=== PATIENT | female | born 1950 | race American Indian/Alaskan Native ===

== ENCOUNTER → 2025-03-24 13:12 | Outpatient (BNVA) | payer OTHER, SELFPAY | PROVIDERS: PCP Internal Medicine ==

== ENCOUNTER 2025-05-11 14:43 | Outpatient (AMB) | payer OTHER, SELFPAY ==
--- NOTE | 2025-05-11 14:50 | MHC.PC.OV ---
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 Required: No Allergies Sulfa (Sulfonamide Antibiotics) Allergy (Unknown, Verified 05/11/25 15:14) Unknown sulfamethoxazole (From Bactrim) Allergy (Unknown, Verified 05/11/25 15:14) Unknown trimethoprim (From Bactrim) Allergy (Unknown, Verified 05/11/25 15:14) Unknown Medication List - Last Reconciled 05/11/25 by Maliha Villatoro MD alendronate 70 mg PO QWEEK amlodipine 5 mg PO DAILY atorvastatin 80 mg PO DAILY cholecalciferol (vitamin D3) 25 mcg PO DAILY doxepin 25 mg PO BEDTIME ezetimibe 10 mg PO DAILY metoprolol succinate ER 50 mg PO DAILY nitroglycerin mg sublingual ondansetron HCl 4 mg PO BID PRN oxycodone 5 mg PO Q6H PRN sennosides (Perdiem Overnight Relief) 15 mg PO DAILY Tobacco use date assessed: 05/11/25 Fall risk assessment: No Falls in past year Last assessed Fall Risk: 05/11/25 Dental Screening Dental Screen Date: 05/11/25 Did you have a dental visit in the last 12 months?: No Did you have a dental problem in the last 6 months where you did not have access to dental care?: No Was dental information given to patient?: Patient declined (has no teeth) HPI HPI Comments History of Present Illness Details The patient is a 74 year old female with past medical history of COPD, CAD, PAD, htn, hld, chronic pancreatitis. Transferring from [facility], Dr August. CV: On norvasc 5, toprol 50mg, lipitor ASA. COPD-on combivent, spiriva/. Tobacco use. Osteoporosis -on fosamax GI: chronic pancreatitis. On creon. History of ileus 10/2024. Follows with GI Chronic pain-previously on oxycodone. Followed by Dr Denton. had tox positive for tramadol and so was weaned of oxycodone-tells me staff had told her okay to take tramadol. Increased neck pain at her december visit with previous pcp. Cervical MRI was ordered and needs to be reordered. since she has been off the oxycodone she has been unable to eat, move around the house etc. Upcoming cataract RSV: 08/2023 Tdap utd ROS CONSTITUTIONAL: Denies weight loss, fever and chills. HEENT: Denies changes in vision and hearing. RESPIRATORY: Denies SOB and cough. CV: Denies palpitations and CP GI: chronic abdominal pain : Denies dysuria and urinary frequency. MSK: chronic neck pain SKIN: Denies rash and pruritus. NEUROLOGICAL: Denies headache PSYCHIATRIC: Denies recent changes in mood. PHYSICAL EXAM: GENERAL: Alert and oriented x 3. NAD EYES: EOMI. Anicteric. HENT: Moist mucous membranes. No scleral icterus. No cervical lymphadenopathy. LUNGS: Clear to auscultation bilaterally. CARDIOVASCULAR: Regular rate and rhythm. No murmur. No JVD. ABDOMEN: Soft, non-tender +bs EXTREMITIES: No edema. Non-tender. SKIN: No rashes or lesions. Warm. NEUROLOGIC: No focal neurological deficits. CN II-XII grossly intact PSYCHIATRIC: Cooperative. Appropriate mood and affect [facility] Surgical History H/O endoscopy Social History Housing: Apartment Alcohol intake: current Patient Tobacco Use Status: Current everyday Tobacco user Cigarettes Per Day: 6 Years Smoked: 50 e-Cigarette/Vaping Use: Never Used Second Hand Smoke Exposure: No service: No Current occupational status: retired Cognitive needs: No Hearing needs: No Vision needs: Yes (cataract surgery next week) Questionnaire Thrive Questionnaire Date Thrive assessed: 03/24/25 I am a: Patient What is your living situation today?: I have a steady place to live Within the past 12 months, did the food you bought not last and you didn't have the money to get more?: Never true Within the past 12 months, did you worry whether your food would run out before you got money to buy more?: Never true Do you have trouble paying for medicines?: No Do you have trouble getting transportation to medical appointments?: No Do you have trouble paying your heating and electricity bill?: No Do you have trouble taking care of your child, family member or friend?: No Do you have trouble with day-to-day activities such as bathing, preparing meals, shopping, managing finances, etc.?: Yes Are you currently unemployed and looking for a job?: No Are you interested in more education?: No Please select the resources that you would like help with: None THRIVE Score: 0 AUDIT C Alcohol Use Questionnaire (AUDIT-C) 1. How often do you have a drink containing alcohol?: Never 3. How often do you have six or more drinks on one occasion?: Never Total Score: 0 Physical exam (Primary Care) Vital Signs: Last Vital Signs Temp 98.2 F 05/11/25 15:00 Pulse 78 05/11/25 15:00 Resp 12 05/11/25 15:00 BP 155/75 H 05/11/25 15:09 Pulse Ox 97 05/11/25 15:00 Oxygen Delivery Method Room Air 05/11/25 15:00 BMI result Body Mass Index 13.9 Tobacco/Smoking Status: Tobacco use Status Tobacco use date assessed 05/11/25 05/11/25 15:04 Patient Tobacco Use Status Current everyday Tobacco 05/11/25 15:22 e-Cigarette/Vaping Use Never Used 05/11/25 15:22 Thrive Assessment: Date of Thrive Assessment Date Thrive assessed 03/24/25 05/11/25 14:50 Coding Level of Care Code New Pt Level 4 (05701) Diagnoses Encounter to establish care Z76.89 Chronic pancreatitis, unspecified pancreatitis type K86.1 Pancreatitis type: unspecified pancreatitis type Chronic pain syndrome G89.4 Chronic pain type: chronic pain syndrome Degenerative disc disease, cervical M50.30 Cervical radiculopathy M54.12 Assessment & Plan Assessment & Plan (1) Encounter to establish care: Code(s): Z76.89 - Persons encountering health services in other specified circumstances (2) Chronic pancreatitis: Code(s): K86.1 - Other chronic pancreatitis Category: Medical Qualifiers: Pancreatitis type: unspecified pancreatitis type Qualified Code(s): K86.1 - Other chronic pancreatitis (3) Chronic pain: Code(s): G89.29 - Other chronic pain Category: Medical Qualifiers: Chronic pain type: chronic pain syndrome Qualified Code(s): G89.4 - Chronic pain syndrome (4) Degenerative disc disease, cervical: Code(s): M50.30 - Other cervical disc degeneration, unspecified cervical region Category: Medical (5) Cervical radiculopathy: Code(s): M54.12 - Radiculopathy, cervical region Category: Medical Plan 74 year old to establish care Past medical, surgical, social reviewed Chronic pain. She can trial restart pain medications. Needs CSA next visit Mammo ordered, Cologuard sent Orders: Orders MM tomosynthesis screening BI 05/11/25 Z12.31 - Encounter for screening mammogram for malignant neoplasm of breast Referrals Cologuard Test Z12.11 - Encounter for screening for malignant neoplasm of colon, Z12.12 - Encounter for screening for malignant neoplasm of rectum Medications: New oxycodone 5 mg PO Q6H PRN 112 tabs 0RF severe pain Trelegy Ellipta 200-62.5-25 mcg ([id number]) 1 inh inhalation DAILY 3 ea 3RF NS
[2025-05-11 15:00] VITALS: BP 142/71; PULSE 78; RESP 12; TEMP 36.8; O2SAT 97; BMI 13.9
[2025-05-11 15:09] VITALS: BP 155/75
--- OUTSIDE RECORDS SUMMARY | 2025-05-11 15:27 | XMS_ITS | Clinical Summary ---
Author Organization [facility] Address [id number] [place] [address] Phone Care Team Providers Care Orthopedic Designer Name Role Phone Yoel Harrison MD Primary Care Provider + Allergies No known active allergies Medications amlodipine besylate (AMLODIPINE ORAL) Take by mouth. Active atorvastatin calcium (ATORVASTATIN ORAL) Take by mouth. Active BABY ASPIRIN ORAL Take by mouth. Active ipratropium-albu teroL (COMBIVENT RESPIMAT) 20-100 mcg/actuation Mist Inhale 1 puff into the lungs 4 (four) times a day. Active doxepin HCl (DOXEPIN ORAL) Take by mouth. Active EZETIMIBE ORAL Take by mouth. Active LACTULOSE ORAL Take by mouth. Active METOPROLOL SUCCINATE ORAL Take by mouth. Active ONDANSETRON ORAL Take by mouth. Active oxycodone HCl (OXYCODONE ORAL) Take by mouth. Active BIOTIN ORAL Take by mouth. Active Family History Medical History Relation Comments Hearing loss Neg Hx Social History Tobacco Use Types Packs/Day Years Used Date Smoking Tobacco: Every Day Smokeless Tobacco: Never Alcohol Use Standard Drinks/Week Comments Not Currently 0 (1 standard drink = 0.6 oz pur e alcohol) Education Answer Date Recorded Are you interested in more education? Not on jazmine e 02/09/2023 Are you concerned about learning? Not on file 02/09/2023 No 02/09/2023 No 02/09/2023 Digital Access Answer Date Recorded No 03/09/2023 No 03/09/2023 No 03/09/2023 Reliable internet access at home? Not on file 03/09/2023 Device with a working camera? Not on file Comments Unknown Sex and Gender Information Value Date Recorded Sex Assigned at Not on file Legal Sex Female 9:43 AM EDT Gender Identity Not on file Sexual Orientation Not on file Last Filed Vital Signs Vital Sign Reading Time Taken Comments Blood Pressure - - Pulse - - Temperature - - Respiratory Rate - - Oxygen Saturation - - Inhaled Oxygen Concentration - - Weight 47.6 kg (105 lb) 02/13/2021 4:25 PM EDT Height 165.1 cm (5' 5 ) 02/13/2021 4:25 PM EDT Body Mass Index 17.47 02/13/2021 4:25 PM EDT Plan of Treatment Health Maintenance Due Date Last Done Comments Adult Td,Tdap Booster 1951 LIPID PANEL 1951 DEPRESSION SCREENING 1963 SMOKING Hx and SMOKELESS TOB ACCO SCREENING 1964 HEPATITIS C SCREENING 1969 PNEUMOCOCCAL VACCINES (50+ y ears) (1 of 2 - PCV) 1970 MAMMOGRAM 1991 COLOGUARD 1996 COLONOSCOPY 1996 COLORECTAL CANCER SCREENING 1996 FIT TEST 1996 FOBT 1996 SIGMOIDOSCOPY 1996 VIRTUAL COLONOSCOPY 1996 ZOSTER VACCINES (1 of 2) 2001 OSTEOPOROSIS SCREENING INITI AL (ONE-TIME) 2016 COVID-19 VACCINE ( - 2023-2 5 season) 2024 RSV VACCINE (1 - 1-dose 75+ series) 2026 HEPATITIS A VACCINES Aged Out No long er eligible based on patient's age to complete this topic HIB VACCINES Aged Out No longer eligi ble based on patient's age to complete this topic MENINGOCOCCAL VACCINES (ACWY) Aged Out No longer eligible based on patient's age to complete this topic MENINGOCOCCAL VACCINES (B) Aged Out N o longer eligible based on patient's age to complete this topic Medical Devices Not on file Insurance [facility] MEDICARE REPLACEMENT MEDICARE PART A & B [facility] MEDICARE [facility]PLACEMENT MEDICARE PART A & B [facility] MEDICARE REPLACEMENT MEDICARE PART A & B [facility] MEDICARE [facility]PLACEMENT MEDICARE PART A & B [facility] MEDICARE REPLACEMENT MEDICARE PART A & B [facility] MEDICARE REPLACEMENT MEDICARE PART A & [place] [address] [place] [address] MEDICARE REPLACEMENT MEDICARE PART A & B [facility] MEDICARE REPLACEMENT [place] [id number] MEDICARE PART A & B [facility] MEDICARE REPLACEMENT [facility] MEDICARE PART A & B Care Teams Orthopedic Designer Relationship Specialty Start Date End Date Yoel Harrison MD [address] [id number] PCP - General Internal Medicine 02/02/21 Additional Source Comments The information contained in this document represents components of the legal health record. It is not the complete legal health record.[facility]
--- OUTSIDE RECORDS SUMMARY | 2025-05-11 15:27 | XMS_ITS | Data Portability ---
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 Plan of Treatment Reminders Order Date Submit Date Provider Last Modified By Organization Details Last Modified Time Details Appointments None recorded. Lab None recorded. Referral None recorded. Procedures None recorded. Surgeries None recorded. Imaging None recorded. Medication Orders prednisone 20 mg tablet 2022 023 [email or web address] Not available 3 20:39:04 prednisone 20 mg tablet 2022 023 [id number], [address] [place], [address], 3 20:39:06 azithromyci n 500 mg tablet 2022 023 [email or web address] Not available 3 20:39:04 azithromyci n 250 mg tablet 2022 023 [id number], [address] [place], [address], 3 20:39:06 Patient TargetsNo targets recorded. Patient InstructionsNo instructions recorded. Reason for Referral None Reported. Medical Equipment None Reported. Medications Name Sig Start Date Stop Date Status Note LastModified by Organization Details LastModified Time atorvastatin 80 mg tablet TAKE 1 TABLET BY MOUTH EVERY DAY active Not Available Not Available No t Available azithromycin 250 mg tablet TAKE 1 TABLET BY MOUTH DAILY FOR 4 DAYS active Not Available Not Available N ot Available metoprolol succinate ER 50 mg tablet,exten ded release 24 hr TAKE 1 TABLET BY MOUTH EVERY DAY active Not Available Not Available No t Available doxepin 25 mg capsule TAKE 1 CAPSULE BY MOUTH AT BEDTIME active Not Available Not Available No t Available ondansetron HCl 4 mg tablet TAKE 1 TABLET BY MOUTH TWICE A DAY NEEDED FOR VOMITTING active Not Available Not Available No t Available prednisone 20 mg tablet TAKE 2 TABLETS BY MOUTH EVERY DAY FOR 4 DAYS active Not Available Not Available No t Available alendronate 70 mg tablet TAKE ONE TABLET BY MOUTH WEEKLY active Not Available Not Available No t Available amlodipine 10 mg tablet TAKE 1 TABLET BY MOUTH EVERY DAY active Not Available Not Available No t Available nitroglyceri n 0.4 mg sublingual tablet PLEASE SEE ATTACHED FOR DETAILED DIRECTIONS active Not Available Not Available N ot Available oxycodone 5 mg tablet TAKE 1 TABLET BY MOUTH TWICE A DAY NEEDED FOR SEVERE PAIN active Not Available Not Available Not Available azithromycin 500 mg tablet Take 1 tablet by oral route for 3 days. 2022 active Not Available Not Available Not Avai lable ezetimibe 10 mg tablet TAKE 1 TABLET BY MOUTH EVERY DAY active Not Available Not Available No t Available lactulose 10 gram/15 mL oral solution TAKE 15 ML BY MOUTH DAILY NEEDED FOR CONSTIPATIO N active Not Available Not Available No t Available diclofenac 1 % topical gel APPLY 2 GRAMS TOPICALLY 4 TIMES A DAY NEEDED FOR PAIN active Not Available Not Available No t Available Combivent Respimat 20 mcg-100 mcg/actuatio n solution for inhalation INHALE 1 PUFF 4 TIMES A DAY NEEDED FOR WHEEZING FOR SHORTNESS OF BREATH active Not Available Not Available No t Available Incruse Ellipta 62.5 mcg/actuatio n powder for inhalation TAKE 1 PUFF EVERY 24 HRS active Not Available Not Available No t Available QuickVue At-Home COVID-19 Test kit TEST DIRECTED TODAY active Not Available Not Available No t Available Vitals Date Recorded Oxygen saturation Oxygen saturation in Arterial blood by Pulse oximetry Heart rate Body temperature Respiratory rate Systolic And Diastolic Provider Name and Address Organization Details Last Updated DateTime 3 93 % 93 % 82 /min 99.7 [degF] 20 /min 115/65 mm[Hg] Not Available [employer] - production 3 20:05:14 Social History None recorded. Functional Status None recorded. Mental Status None recorded. Family History Nothing Reported. Medical History No medical history recorded. Gynecological HistoryNo gynecological history recorded. Obstetrics History GPAL:G 0 P 0 0 0 0 Past Encounters Encounter ID Performer Location Encounter Start Date Encounter Closed Date Diagnosis/Indication Diagnosis SNOMED-CT Code Diagnosis ICD10 Code Diagnosis Note [id number] Eduard Ross MD [facility] [address] [place] [address] 02/12/2023 20:05:13 02/14/2023 09:51:40 Acute exacerbation of chronic obstructive pulmonary disease [id number] J44.1 Reports increased cough productive of sputum for three days. No true fevers. She has been taking her inhaler without relief. Found to have wheezing per obstetrics nurse without fevers or focal rales. Plan for steroids and azithromyc in. Chronic pancreatitis [id number] K86.1 Reports pain is slightly worse than usual, 01/21. No clear triggers. Pain is tolerable for her. Health Concerns Section Related Observation LastModified by Organization Detai ls LastModified Time None Recorded Concern Status LastModified by Organization Details LastModified Time None Recorded Advance Directives Directive None Recorded Payers Insurance Date Sequence Insurance Name Policy Number Policy Holman Covered Member ID Holman Member ID Guarantor Name 02/12/2023 1 [facility] - DOS PRIOR TO 2023 - DUAL ELIGIBLE (MEDICARE REPLACEMENT/ADV ANTAGE - HMO) Aye Hendrickson [id number] Aye Hendrickson OBGyn Episode No OBEpisode recorded.
== END 2025-05-11 15:32 | disposition home or self-care (01) ==
LOC: HO.HMCFM 14:43
PROVIDERS: PCP Internal Medicine; Visit Provider Internal Medicine
DX: Z76.89 Persons encountering health services in other specified circumstances (principal); K86.1 Other chronic pancreatitis; G89.4 Chronic pain syndrome; M50.30 Other cervical disc degeneration, unspecified cervical region; M54.12 Radiculopathy, cervical region

== ENCOUNTER 2025-08-16 11:10 | Outpatient (AMB) | payer OTHER, SELFPAY ==
[2025-08-16 11:13] VITALS: BP 116/62; PULSE 82; RESP 14; TEMP 36.6; O2SAT 95; BMI 14.0
--- NOTE | 2025-08-16 11:13 | MHC.PC.OV ---
Vital Signs 08/16/25 11:13 Height 5 ft 4.17 in Weight 82 lb BMI 14.0 BP 116/62 Blood Pressure Location Rt brachial Position Sitting Respiration 14 Pulse 82 Pulse Source Pulse Oximeter Temp 97.9 F Temp Source Oral Pulse Oximetry (%) 95 Oxygen Delivery Method Room Air Intake Visit Reasons: 3mos Intake Note: Three month follow up. Was at the hospital 08/26/2025 Emblem Drawer In Required: No Allergies Sulfa (Sulfonamide Antibiotics) Allergy (Unknown, Verified 08/16/25 11:16) Unknown sulfamethoxazole (From Bactrim) Allergy (Unknown, Verified 08/16/25 11:16) Unknown trimethoprim (From Bactrim) Allergy (Unknown, Verified 08/16/25 11:16) Unknown Tobacco use date assessed: 05/11/25 Dental Screening Dental Screen Date: 05/11/25 HPI HPI Comments History of Present Illness Details The patient is a 74 year old female with past medical history of COPD, CAD, PAD, htn, hld, chronic pancreatitis presenting for hospital follow up She was hospitalized from 07/26-07/28/25 at [facility]. She presented with shortness of breath, admitted for acute hypoxic respiratory failure, COPD exacerbation in setting of + parainfluenza. Patient was able to ambulate at end of hospitalization without oxygen. Originally was going to be d/c on 3L. She said she still felt bad at the time of discharge but now that she has completed her outpatient steroid taper, azithromycin she feels back to respiratory baseline. CV: On norvasc 5, toprol 50mg, lipitor ASA. COPD-on combivent, spiriva. Tobacco use Osteoporosis -on fosamax GI: chronic pancreatitis. On creon. History of ileus 10/2024. Follows with GI Chronic pain-stable on oxycodone. Previously followed by Dr Denton. Without the medication she is unable to eat, move around the house etc. (abdominal pain) Declines cologuard. Declines mammogram RSV: 08/2023 Tdap utd ROS CONSTITUTIONAL: Denies weight loss, fever and chills. HEENT: Denies changes in vision and hearing. RESPIRATORY: Denies SOB and cough. CV: Denies palpitations and CP GI: chronic abdominal pain : Denies dysuria and urinary frequency. MSK: chronic neck pain SKIN: Denies rash and pruritus. NEUROLOGICAL: Denies headache PSYCHIATRIC: Denies recent changes in mood. PHYSICAL EXAM: GENERAL: Alert and oriented x 3. Cachectic. No distress EYES: EOMI. Anicteric. HENT: Moist mucous membranes. No scleral icterus. No cervical lymphadenopathy. LUNGS: Clear to auscultation bilaterally. CARDIOVASCULAR: Regular rate and rhythm. No murmur. No JVD. ABDOMEN: Soft, non-tender +bs EXTREMITIES: No edema. Non-tender. SKIN: No rashes or lesions. Warm. NEUROLOGIC: No focal neurological deficits. CN II-XII grossly intact PSYCHIATRIC: Cooperative. Appropriate mood and affect [facility] Surgical History H/O endoscopy Social History Housing: Apartment Alcohol intake: current Patient Tobacco Use Status: Current everyday Tobacco user Cigarettes Per Day: 6 Years Smoked: 50 e-Cigarette/Vaping Use: Never Used Second Hand Smoke Exposure: No service: No Current occupational status: retired Cognitive needs: No Hearing needs: No Vision needs: Yes (cataract surgery next week) Questionnaire Thrive Questionnaire Date Thrive assessed: 03/24/25 I am a: Patient What is your living situation today?: I have a steady place to live Within the past 12 months, did the food you bought not last and you didn't have the money to get more?: Never true Within the past 12 months, did you worry whether your food would run out before you got money to buy more?: Never true Do you have trouble paying for medicines?: No Do you have trouble getting transportation to medical appointments?: No Do you have trouble paying your heating and electricity bill?: No Do you have trouble taking care of your child, family member or friend?: No Do you have trouble with day-to-day activities such as bathing, preparing meals, shopping, managing finances, etc.?: Yes Are you currently unemployed and looking for a job?: No Are you interested in more education?: No Please select the resources that you would like help with: None THRIVE Score: 0 Physical exam (Primary Care) Vital Signs: Last Vital Signs Temp 97.9 F 08/16/25 11:13 Pulse 82 08/16/25 11:13 Resp 14 08/16/25 11:13 BP 116/62 08/16/25 11:13 Pulse Ox 95 08/16/25 11:13 Oxygen Delivery Method Room Air 08/16/25 11:13 BMI result Body Mass Index 14.0 Tobacco/Smoking Status: Tobacco use Status Tobacco use date assessed 05/11/25 08/16/25 11:15 Patient Tobacco Use Status Current everyday Tobacco 08/16/25 11:15 e-Cigarette/Vaping Use Never Used 08/16/25 11:15 Thrive Assessment: Date of Thrive Assessment Date Thrive assessed 03/24/25 08/16/25 11:15 Office Procedures Flu Questionnaire Does the patient have a severe egg allergy?: No Does the patient have severe life threatening allergies?: No Does the patient have a fever or illness today?: No Has the patient ever had Guillain-[place] Syndrome?: No Has the patient ever had any past reaction to a flu shot?: No Immunizations Fluarix [id number] (PF) 45 mcg (15 mcg x 3)/0.5 mL IM syringe Performing Provider: Maliha Villatoro MD Performing Location: [facility] Administered by: Merly Gates CMA on 08/16/25 11:50 Dose Route Admin Location Dispensed Lot Number Expiration Date [facility] Plasterer Apprentice 0.5 mL IM Right Deltoid 0.5 mL [id number] 04/12/26 83831-760-15 [employer] VIS Given Date VIS Provided VIS Publication Date 08/16/25 Single Vaccine 24 Eligibility Eligibility Date Funding Source Not [facility] Eligible 08/16/25 Private Coding Level of Care Code Est Pt Level 4 (09447) Complex EM visit Add On G2211 Diagnoses Chronic pancreatitis, unspecified pancreatitis type K86.1 Pancreatitis type: unspecified pancreatitis type Cervical radiculopathy M54.12 Chronic pain syndrome G89.4 Chronic pain type: chronic pain syndrome Hospital discharge follow-up Z09 Chronic obstructive pulmonary disease, unspecified COPD type J44.9 COPD type: unspecified COPD Assessment & Plan Assessment & Plan (1) Chronic pancreatitis: Code(s): K86.1 - Other chronic pancreatitis Category: Medical Qualifiers: Pancreatitis type: unspecified pancreatitis type Qualified Code(s): K86.1 - Other chronic pancreatitis (2) Cervical radiculopathy: Code(s): M54.12 - Radiculopathy, cervical region Category: Medical (3) Chronic pain: Code(s): G89.29 - Other chronic pain Category: Medical Qualifiers: Chronic pain type: chronic pain syndrome Qualified Code(s): G89.4 - Chronic pain syndrome (4) Hospital discharge follow-up: Code(s): Z09 - Encounter for follow-up examination after completed treatment for conditions other than malignant neoplasm (5) COPD (chronic obstructive pulmonary disease): Code(s): J44.9 - Chronic obstructive pulmonary disease, unspecified Category: Medical Qualifiers: COPD type: unspecified COPD Qualified Code(s): J44.9 - Chronic obstructive pulmonary disease, unspecified Plan Hospital discharge follow up Discharge summary reviewed Back to respiratory baseline Malnourished-continue fosamax. Start remeron. Hold doxepin Chronic pancreatitis-continue pain med, creon BP is adequately controlled Declines preventive screenings Orders: Orders Influenza [id number] Immunization 08/16/25 Z23 - Encounter for immunization Medications: New mirtazapine (Remeron) 30 mg PO BEDTIME 90 tabs 3RF Discontinued Trelegy Ellipta 200-62.5-25 mcg (zxpihjvmqdd-aukjxfntf-pzntkaig) Discontinued Reason: Doctor's Order 1 inh inhalation DAILY 3 ea 3RF NS
--- OUTSIDE RECORDS SUMMARY | 2025-08-16 14:09 | XMS_ITS | Data Portability ---
Author Organization [employer] [facility], [employer] [facility] Address [address] [place] [id number] Care Team Providers Care Regulatory Compliance Director Name Role Phone [facility] Referring Provider Assessment No assessment recorded. Plan of Treatment Reminders Order Date Submit Date Provider Last Modified By Organization Details Last Modified Time Details Appointments None recorded. Lab None recorded. Referral None recorded. Procedures None recorded. Surgeries None recorded. Imaging None recorded. Medication Orders prednisone 20 mg tablet 2022 023 [email or web address] Not available 3 20:39:04 prednisone 20 mg tablet 2022 023 [id number], [address] [place], [address], 3 20:39:06 azithromyci n 500 mg tablet 2022 023 [email or web address] Not available 3 20:39:04 azithromyci n 250 mg tablet 2022 023 [id number], [address] [place], [address], 3 20:39:06 Patient TargetsNo targets recorded. Patient [...] [degF] 20 /min 115/65 mm[Hg] Not Available [employer] - production 3 20:05:14 Social History None recorded. Functional Status None recorded. Mental Status None recorded. Family History Nothing Reported. Medical History No medical history recorded. Gynecological HistoryNo gynecological history recorded. Obstetrics History GPAL:G 0 P 0 0 0 0 Past Encounters Encounter ID Performer Location Encounter Start Date Encounter Closed Date Diagnosis/Indication Diagnosis SNOMED-CT Code Diagnosis ICD10 Code Diagnosis IMO Codes Diagnosis Note [id number] Eduard Ross MD [address] [phone] 02/12/2023 20:05:13 02/14/2023 09:51:40 Acute exacerbation of chronic obstructive pulmonary disease [id number] J44.1 Reports increased cough productive of sputum for three days. No true fevers. She has been taking her inhaler without relief. 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 Plan for steroids and azithromyc in. Chronic pancreatitis [id number] K86.1 Reports pain is slightly worse than [...] Holman Member ID Guarantor Name 02/12/[address] [facility] - DOS PRIOR TO 2023 - DUAL ELIGIBLE (MEDICARE REPLACEMENT/ADV ANTAGE - HMO) Aye Hendrickson [id number] Aye Hendrickson Notes Date Note Type Note Provider Name and Address Organization Details Recorded Time 02/12/2023 text/html HPI: Member calling in with increased shortness of breath X 3days. States is occurs more at night than during the day. Member is using rescue inhaler. Member also has HX of chronic pancreatitis and has had some abd pain and loss a appetite. Requesting evaluation .................. .................. .................. .................. .................. .................. .................. ............... CRC Nursing Assessment: Comments: CRC RN did not require any additional information to process this visit. .................. .................. .................. .................. .................. .................. .................. ............... Water Attendant Note From Tasha Hall: [facility] Water Attendant Jeromy Hall [email or web address] dispatched to a [facility] for a 72 yof C/O a cough and abd X4 days. Upon arrival, the pt was ambulatory, BROOKS X4, in no apparent distress. She stated that she had baseline 4/10 abd pain w/ pancreatitis, but that for the past few days her pain was 8/10, and her upper abdomen was tender and swollen. She denied N/V/D but stated lack of appetite. She stated that she also had a productive cough that was keeping her up at night. She stated increase in phlegm and shortness of breath on exertion as well, and that her phlegm was not clear like it usually is. Pt denied dizziness, headache, sore throat, CP, SOB at rest, or urinary S/S. Faint inspiratory and expiratory wheezes heard in all borden, no pedal edema. Pt stated she was using her combivent throughout the day w/ some relief. [facility] [place]; pt was given 40 mg prednisone PO and 500 mg azithromycin PO w/ rx for both. She was instructed on combivent and tylenol use for symptom relief, and red flags were discussed at length. .................. .................. .................. .................. .................. .................. .................. ............... Disposition: Fulfilled Eduard Ross MD [address] [place] [address],[facility], [place], [phone], BAMBI - RADHA MATHUR 02/12/2023 22:35:47 OBGyn Episode No OBEpisode recorded.
--- OUTSIDE RECORDS SUMMARY | 2025-08-16 14:09 | XMS_ITS | Clinical Summary ---
Author Organization [facility] Address [address] [place] [address] Phone Care Team Providers Care Multimedia Designer Name Role Phone Yoel Harrison MD [...] 2001 OSTEOPOROSIS SCREENING INITI AL (ONE-TIME) 2016 INFLUENZA VACCINE (#1) 2025 COVID-19 VACCINE (1 - 2024-2 6 season) 2025 RSV VACCINE (1 - 1-dose 75+ series) [...] topic Medical Devices Not on file Insurance [facility] [employer] MEDICARE REPLACEMENT MEDICARE PART A & B [address] [place], [place] [address]O MEDICARE REPLACEMENT MEDICARE PART A & B [facility] MEDICARE REPLACEMENT MEDICARE PART A & B [facility] MEDICARE REPLACEMENT MEDICARE PART A & B MEDICARE REPLACEMENT MEDICARE PART A & B [facility] MEDICARE REPLACEMENT Member Subscriber Plan / Payer (Ef fective 2017-Present) Name:Kim Hendrickson Relation to Subscriber:Self Name:Kim Hendrickson Payer ID:[id number] (NAIC) Group ID:[id number] Type:Medicare Address: [address] [facility] MEDICARE PART A & B MEDICARE REPLACEMENT MEDICARE PART A & B [facility] MEDICARE REPLACEMENT MEDICARE PART A & B [facility] MEDICARE REPLACEMENT [facility] MEDICARE PART A & B Care Teams Multimedia Designer Relationship Specialty Start Date End Date Yoel Harrison MD [address] [place] [id number] PCP - General Internal Medicine 02/02/21 Additional Source Comments The information contained in this document represents components of the legal health record. It is not the complete legal health record.[facility]
== END 2025-08-16 13:07 | disposition home or self-care (01) ==
LOC: HO.HMCFM 11:11
PROVIDERS: PCP Internal Medicine; Visit Provider Internal Medicine
DX: K86.1 Other chronic pancreatitis (principal); M54.12 Radiculopathy, cervical region; G89.4 Chronic pain syndrome; Z09 Encounter for follow-up examination after completed treatment for conditions other than malignant neoplasm; J44.9 Chronic obstructive pulmonary disease, unspecified

== ENCOUNTER → 2025-08-16 11:10 | Outpatient (BNVA) | payer OTHER, SELFPAY | PROVIDERS: PCP Internal Medicine; Visit Provider Internal Medicine | DX: Z09 Encounter for follow-up examination after completed treatment for conditions other than malignant neoplasm (principal); Z23 Encounter for immunization; K86.1 Other chronic pancreatitis; M54.12 Radiculopathy, cervical region; G89.4 Chronic pain syndrome; J44.9 Chronic obstructive pulmonary disease, unspecified; I10 Essential (primary) hypertension; M81.0 Age-related osteoporosis without current pathological fracture; I25.10 Atherosclerotic heart disease of native coronary artery without angina pectoris; Z79.82 Long term (current) use of aspirin; Z79.891 Long term (current) use of opiate analgesic; Z79.899 Other long term (current) drug therapy | CPT/HCPCS: 90471; 90656 ==